=== PATIENT | male | born 1995 | race African-American/Black ===

== ENCOUNTER 2019-11-21 00:07 | Emergency (ER) | payer MEDICAID ==
[~2019-11-21] VITALS: Ht 185.4 cm; Wt 76.2 kg
[2019-11-21 01:01] LABS: Urine Bacteria FEW /hpf (None Seen); Urine Blood TRACE /uL (Negative); Urine Mucus FEW (None Seen); Urine Sperm PRESENT /hpf (None Seen); Urine WBC 38 /hpf (0 - 3)
[2019-11-21 01:55] VITALS: BP 118/77
[2019-11-21] MEDS ORDERED: AZITHROMYCIN 250 MG TAB PO ONE (02:45)
[2019-11-21] MEDS ORDERED: cefTRIAXone SOD 1,000 MG VL IM ONE (02:45)
== END 2019-11-21 03:27 | disposition home or self-care (01) ==
LOC: ER 00:07
DX: N45.1 Epididymitis (principal); N39.0 Urinary tract infection, site not specified; Z91.09 Other allergy status, other than to drugs and biological substances
CPT/HCPCS: 76870; 81001; 96372; 99284; J0696